=== PATIENT | male | born 2000 | race Caucasian/White ===

== ENCOUNTER → 2024-01-03 | Outpatient (CLI) | payer OTHER | LOC: M OUTALCOH 12:38 | PROVIDERS: ATTEND Psychiatry & Neurology Psychiatry | DX: F10.10 Alcohol abuse, uncomplicated (principal); F17.200 Nicotine dependence, unspecified, uncomplicated ==

== ENCOUNTER 2024-01-17 10:00 | Outpatient (RCR) | payer OTHER | END 2024-02-05 | LOC: M OUTALCOH 10:00 | PROVIDERS: ATTEND Psychiatry & Neurology Psychiatry | DX: F10.10 Alcohol abuse, uncomplicated (principal); F17.200 Nicotine dependence, unspecified, uncomplicated ==